=== PATIENT | female | born 1990 | race Caucasian/White ===

== ENCOUNTER 2017-01-03 14:41 | Emergency (ER) | payer OTHER ==
[2017-01-03 14:58] VITALS: BP 120/81
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
[2017-01-03] MEDS ORDERED: IBUPROFEN 600 MG TABLET PO ONE (16:10)
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
== END 2017-01-03 17:08 | disposition home or self-care (01) ==
LOC: ER 14:41
DX: S16.1XXA Strain of muscle, fascia and tendon at neck level, initial encounter (principal); S80.00XA Contusion of unspecified knee, initial encounter; S09.90XA Unspecified injury of head, initial encounter; V49.50XA Passenger injured in collision with unspecified motor vehicles in traffic accident, initial encounter; Y93.89 Activity, other specified; M25.511 Pain in right shoulder; M25.561 Pain in right knee; M54.2 Cervicalgia
CPT/HCPCS: 70450; 72125; 99283